=== PATIENT | male | born 1945 | race American Indian/Alaskan Native ===

== ENCOUNTER 2021-11-02 16:55 | Observation (INO) | payer MEDICARE ==
[2021-11-02 20:33] LABS: Alanine Aminotransferase 27 units/L (7-56); Albumin 4.4 g/dL (3.9-5); BUN/Creatinine Ratio 7; Blood Urea Nitrogen 10 mg/dL (9-20); Calcium 9.9 mg/dL (8.4-10.2); Hemolysis Index 10
--- NOTE | 2021-11-02 20:36 | XRay Report ---
XR chest 1V ap INDICATION / CLINICAL INFORMATION: Syncope COMPARISON: None available. FINDINGS: SUPPORT DEVICES: None. HEART / MEDIASTINUM: Median sternotomy for CABG. No significant abnormality. LUNGS / PLEURA: Lungs are clear. Costophrenic sulci are sharp. No pneumothorax. ADDITIONAL FINDINGS: No significant additional findings. IMPRESSION: 1. No acute findings. Signer Name: Mo Martin MD Signed: 11/02/2021 8:31 PM Workstation Name: [id number]
--- NOTE | 2021-11-02 20:42 | Cat Scan Report ---
CT head/brain wo con INDICATION / CLINICAL INFORMATION: 76 years Male; Syncope. TECHNIQUE: Routine CT head without contrast. All CT scans at this location are performed using CT dos e reduction for ALARA by means of automated exposure control. COMPARISON: None. FINDINGS: BRAIN / INTRACRANIAL CONTENTS: Small lacunar infarct is seen along the anterior limb of the internal capsule on the [id number] without diffusion imaging by MRI. Small lacunar infarcts seen in the head of the caudate on the left, as well. Otherwise, no acute hemorrhage, mass effect, midline shift, hydrocephalus, or acute, large territori al infarct. Ifcx-xa-[id number], diffuse cerebral and cerebellar atrophy. There are msip-rk-[id number] areas of decreased attenuation in the white matter of the cerebral hemisph eres. These are nonspecific findings and may be related to microangiopathy (hypertension, diabetes, a therosclerosis), given the patient's age. It might be difficult to evaluate for small areas of ischem ia without diffusion imaging by MRI. CRANIOCERVICAL JUNCTION: No significant abnormality. ORBITS: No significant abnormality of visualized orbits. SINUSES / MASTOIDS: Mild mucosal thickening in the ethmoids. ADDITIONAL FINDINGS: Atherosclerotic disease is seen in the anterior and posterior circulation. IMPRESSION: 1. No focal mass, hemorrhage, hydrocephalus, or acute, large territorial infarct. Follow-up with diff usion imaging by MRI, as clinically warranted. Signer Name: Flash Nesbitt MD, III Signed: 11/02/2021 8:38 PM Workstation Name: [facility]
[2021-11-02 20:44] LABS: Basophils % (Auto) 0.4 % (0.0-1.8); Eosinophils # (Auto) 0.2 K/mm3 (0.0-0.4); Eosinophils % (Auto) 2.2 % (0.0-4.3); Hematocrit 44.1 % (35.5-45.6); Hemoglobin 14.4 gm/dl (11.8-15.2); Lymphocytes # (Auto) 1.7 K/mm3 (1.2-5.4); Lymphocytes % (Auto) 23.3 % (13.4-35.0); Mean Corpuscular HGB Conc 33 % (32-34); Mean Corpuscular Volume 89 fl (84-94); Monocytes # (Auto) 0.4 K/mm3 (0.0-0.8); Monocytes % (Auto) 5.9 % (0.0-7.3); Platelet Count 226 K/mm3 (140-440); Red Blood Count 4.93 M/mm3 (3.65-5.03); Red Cell Distribution Width 14.1 % (13.2-15.2)
[2021-11-02 20:54] LABS: INR 1.05 (0.87-1.13)
[2021-11-02] MEDS ORDERED: ASPIRIN 81 MG TAB CHEW PO ONE (21:51)
--- NOTE | 2021-11-02 21:51 | Emergency Department Report ---
ED General Adult HPI - General Chief complaint: Syncope Stated complaint: SYNCOPE Time Seen by Provider: 11/02/21 19:32 Source: patient, EMS Mode of arrival: Stretcher Limitations: No Limitations - History of Present Illness Initial comments: Patient presents to the emergency department via EMS for syncopal episode while at his primary care physician's office. Per EMS the patient was seen in his physician when a witnessed syncopal episode occurred. The patient loss of bladder during the episode. The patient's physician denies any seizure-like act ivity. The patient has no history of seizures. Patient denies chest pain prior to or after the syncopal episode. He denies shortness of breath or abdominal pain. -: Sudden Severity scale (0 -10): 0 Consistency: now resolved Improves with: none Worsens with: none Associated Symptoms: denies other symptoms Treatments Prior to Arrival: none - Related Data Allergies Allergy/AdvReac Type Severity Reaction Status Date / Time No Known Allergies Allergy Verified 11/02/21 16:58 ED Review of Systems ROS: Stated complaint: SYNCOPE Other details as noted in HPI Comment: All other systems reviewed and negative Constitutional: denies: chills, fever Eyes: denies: eye pain, eye discharge, vision change ENT: denies: ear pain, throat pain Respiratory: denies: cough, shortness of breath, wheezing Cardiovascular: denies: chest pain, palpitations Endocrine: no symptoms reported Gastrointestinal: denies: abdominal pain, nausea, diarrhea Genitourinary: denies: urgency, dysuria Musculoskeletal: denies: back pain, joint swelling, arthralgia Skin: denies: rash, lesions Neurological: denies: headache, weakness, paresthesias Psychiatric: denies: anxiety, depression Hematological/Lymphatic: denies: easy bleeding, easy bruising ED Physical Exam - General Limitations: No Limitations General appearance: alert, in no apparent distress - Head Head exam: Present: atraumatic, normocephalic - Eye Eye exam: Present: normal appearance, PERRL, EOMI - ENT ENT exam: Present: mucous membranes moist - Neck Neck exam: Present: normal inspection - Respiratory Respiratory exam: Present: normal lung sounds bilaterally. Absent: respiratory distress - Cardiovascular Cardiovascular Exam: Present: regular rate, normal rhythm. Absent: systolic murmur, diastolic murmur, rubs, gallop - GI/Abdominal GI/Abdominal exam: Present: soft, normal bowel sounds. Absent: distended, tenderness - Rectal Rectal exam: Present: deferred - Extremities Exam Extremities exam: Present: normal inspection - Back Exam Back exam: Present: normal inspection - Neurological Exam Neurological exam: Present: alert, oriented X3, CN II-XII intact. Absent: motor sensory deficit - Psychiatric Psychiatric exam: Present: normal affect, normal mood - Skin Skin exam: Present: warm, dry, intact, normal color. Absent: rash ED Course Vital Signs 11/02/21 11/02/21 11/02/21 16:56 19:25 19:30 Pulse Rate 74 Respiratory Rate Blood Pressure Blood Pressure 116/74 [Left] O2 Sat by Pulse 97 87 100 Oximetry 11/02/21 11/02/21 11/02/21 19:31 19:45 20:01 Pulse Rate 66 71 Respiratory 16 19 Rate Blood Pressure 135/66 135/66 119/66 Blood Pressure [Left] O2 Sat by Pulse 98 100 98 Oximetry 11/02/21 11/02/21 11/02/21 20:16 20:31 20:45 Pulse Rate 76 76 73 Respiratory 19 18 17 Rate Blood Pressure 119/66 Blood Pressure [Left] O2 Sat by Pulse 99 98 98 Oximetry 11/02/21 11/02/21 21:01 21:15 Pulse Rate 68 74 Respiratory 18 16 Rate Blood Pressure 119/66 119/66 Blood Pressure [Left] O2 Sat by Pulse 98 98 Oximetry ED Medical Decision Making - Lab Data Result diagrams: 11/02/21 19:49 11/02/21 19:49 Lab Results 11/02/21 11/02/21 11/02/21 Range/Units 19:29 19:49 19:49 WBC 7.1 (4.5-11.0) K/mm3 RBC 4.93 (3.65-5.03) M/mm3 Hgb 14.4 (11.8-15.2) gm/dl Hct 44.1 (35.5-45.6) % MCV 89 (84-94) fl MCH 29 (28-32) pg MCHC 33 (32-34) % RDW 14.1 (13.2-15.2) % Plt Count 226 (140-440) K/mm3 Lymph % (Auto) 23.3 (13.4-35.0) % [place] % (Auto) 5.9 (0.0-7.3) % Eos % (Auto) 2.2 (0.0-4.3) % Baso % (Auto) 0.4 (0.0-1.8) % Lymph # (Auto) 1.7 (1.2-5.4) K/mm3 [place] # (Auto) 0.4 (0.0-0.8) K/mm3 Eos # (Auto) 0.2 (0.0-0.4) K/mm3 Baso # (Auto) 0.0 (0.0-0.1) K/mm3 Seg Neutrophils % 68.2 (40.0-70.0) % Seg Neutrophils # 4.9 (1.8-7.7) K/mm3 PT 14.9 (12.2-14.9) Sec. INR 1.05 (0.87-1.13) D-Dimer 152.47 (0-234) ng/mlDDU Sodium (137-145) mmol/L Potassium (3.6-5.0) mmol/L Chloride (98-107) mmol/L Carbon Dioxide (22-30) mmol/L Anion Gap mmol/L BUN (9-20) mg/dL Creatinine (0.8-1.3) mg/dL Estimated GFR ml/min BUN/Creatinine Ratio % Glucose (75-100) mg/dL POC Glucose 108 H (70-105) mg/dL Calcium (8.4-10.2) mg/dL Magnesium (1.7-2.3) mg/dL Total Bilirubin (0.1-1.2) mg/dL AST (5-40) units/L ALT (7-56) units/L Alkaline Phosphatase (35-129) units/L Troponin T (0.00-0.029) ng/mL Total Protein (6.3-8.2) g/dL Albumin (3.9-5) g/dL Albumin/Globulin Ratio % 11/02/21 Range/Units 19:49 WBC (4.5-11.0) K/mm3 RBC (3.65-5.03) M/mm3 Hgb (11.8-15.2) gm/dl Hct (35.5-45.6) % MCV (84-94) fl MCH (28-32) pg MCHC (32-34) % RDW (13.2-15.2) % Plt Count (140-440) K/mm3 Lymph % (Auto) (13.4-35.0) % [place] % (Auto) (0.0-7.3) % Eos % (Auto) (0.0-4.3) % Baso % (Auto) (0.0-1.8) % Lymph # (Auto) (1.2-5.4) K/mm3 [place] # (Auto) (0.0-0.8) K/mm3 Eos # (Auto) (0.0-0.4) K/mm3 Baso # (Auto) (0.0-0.1) K/mm3 Seg Neutrophils % (40.0-70.0) % Seg Neutrophils # (1.8-7.7) K/mm3 PT (12.2-14.9) Sec. INR (0.87-1.13) D-Dimer (0-234) ng/mlDDU Sodium 142 (137-145) mmol/L Potassium 4.2 (3.6-5.0) mmol/L Chloride 103.8 (98-107) mmol/L Carbon Dioxide 25 (22-30) mmol/L Anion Gap 17 mmol/L BUN 10 (9-20) mg/dL Creatinine 1.4 H (0.8-1.3) mg/dL Estimated GFR 50 ml/min BUN/Creatinine Ratio 7 % Glucose 104 H (75-100) mg/dL POC Glucose (70-105) mg/dL Calcium 9.9 (8.4-10.2) mg/dL Magnesium 2.20 (1.7-2.3) mg/dL Total Bilirubin 0.40 (0.1-1.2) mg/dL AST 28 (5-40) units/L ALT 27 (7-56) units/L Alkaline Phosphatase 84 (35-129) units/L Troponin T < 0.010 (0.00-0.029) ng/mL Total Protein 7.4 (6.3-8.2) g/dL Albumin 4.4 (3.9-5) g/dL Albumin/Globulin Ratio 1.5 % - EKG Data -: EKG Interpreted by Md EKG shows normal: sinus rhythm Rate: normal - Radiology Data Radiology results: report reviewed - Medical Decision Making Discussed plan of care with patient Critical care attestation.: If time is entered above; I have spent that time in minutes in the direct care of this critically ill patient, excluding procedure time. ED Disposition Clinical Impression: Syncope Disposition: 01 HOME / SELF CARE / HOMELESS Is pt being admited?: No Does the pt Need Aspirin: Yes Condition: Fair Instructions: Syncope (ED)
[2021-11-02] MEDS ORDERED: traMADol 50 MG TAB PO PRN (22:02)
[2021-11-02] MEDS ORDERED: NITROGLYCERIN 0.4 MG TAB SUBL SL PRN (22:02)
[2021-11-02] MEDS ORDERED: MORPHINE 2 MG/1 ML INJ IV PRN (22:02)
[2021-11-02] MEDS ORDERED: ACETAMINOPHEN 325 MG TAB PO PRN (22:02)
--- NOTE | 2021-11-02 22:10 | History and Physical Report ---
History of Present Illness Date of examination: 11/02/21 Date of admission: 11/02/21 Chief complaint: Syncope History of present illness: 76 years old male with history of hypertension was brought to the hospital because of syncopal episode while at his primary care physician's office. Per EMS the patient was seen in his physician when a witnessed syncopal episode occurred. The patient loss of bladder during the episode. The patient's physician denies any seizure-like activity. The patient has no history of seizures. Patient denies chest pain prior to or after the syncopal episode. He denies shortness of breath or abdominal pain. In the emergency room initial cardiac enzyme is negative troponin is 0.010. CT scan of the head shows no acute intracranial abnormality. Chest x-ray shows no acute finding Past History Past Medical History: hypertension Past Surgical History: No surgical history Social history: no significant social history Family history: no significant family history Medications and Allergies Allergies Allergy/AdvReac Type Severity Reaction Status Date / Time No Known Allergies Allergy Verified 11/02/21 16:58 Review of Systems All systems: negative Cardiovascular: syncope Exam - Constitutional Vitals: Temp Pulse Resp BP Pulse Ox 74 16 119/66 98 11/02/21 21:15 11/02/21 21:15 11/02/21 21:15 11/02/21 21:15 General appearance: Present: no acute distress, well-nourished - EENT Eyes: Present: PERRL ENT: hearing intact, clear oral mucosa - Neck Neck: Present: supple, normal ROM - Respiratory Respiratory effort: normal Respiratory: bilateral: CTA - Cardiovascular Heart Sounds: Present: S1 & S2. Absent: rub, click - Extremities Extremities: pulses symmetrical, No edema Peripheral Pulses: within normal limits - Abdominal General gastrointestinal: Present: soft, non-tender, non-distended, normal bowel sounds Male genitourinary: Present: normal - Integumentary Integumentary: Present: clear, warm, dry - Musculoskeletal Musculoskeletal: gait normal, strength equal bilaterally - Psychiatric Psychiatric: appropriate mood/affect, intact judgment & insight - Neurologic Neurologic: CNII-XII intact, moves all extremities HEART Score - HEART Score Troponin: Troponin T < 0.010 ng/mL (0.00-0.029) 11/02/21 19:49 Results - Labs CBC & Chem 7: 11/02/21 19:49 11/02/21 19:49 Labs: Laboratory Last Values WBC 7.1 K/mm3 (4.5-11.0) 11/02/21 19:49 RBC 4.93 M/mm3 (3.65-5.03) 11/02/21 19:49 Hgb 14.4 gm/dl (11.8-15.2) 11/02/21 19:49 Hct 44.1 % (35.5-45.6) 11/02/21 19:49 MCV 89 fl (84-94) 11/02/21 19:49 MCH 29 pg (28-32) 11/02/21 19:49 MCHC 33 % (32-34) 11/02/21 19:49 RDW 14.1 % (13.2-15.2) 11/02/21 19:49 Plt Count 226 K/mm3 (140-440) 11/02/21 19:49 Lymph % (Auto) 23.3 % (13.4-35.0) 11/02/21 19:49 [place] % (Auto) 5.9 % (0.0-7.3) 11/02/21 19:49 Eos % (Auto) 2.2 % (0.0-4.3) 11/02/21 19:49 Baso % (Auto) 0.4 % (0.0-1.8) 11/02/21 19:49 Lymph # (Auto) 1.7 K/mm3 (1.2-5.4) 11/02/21 19:49 [place] # (Auto) 0.4 K/mm3 (0.0-0.8) 11/02/21 19:49 Eos # (Auto) 0.2 K/mm3 (0.0-0.4) 11/02/21 19:49 Baso # (Auto) 0.0 K/mm3 (0.0-0.1) 11/02/21 19:49 Seg Neutrophils % 68.2 % (40.0-70.0) 11/02/21 19:49 Seg Neutrophils # 4.9 K/mm3 (1.8-7.7) 11/02/21 19:49 PT 14.9 Sec. (12.2-14.9) 11/02/21 19:49 INR 1.05 (0.87-1.13) 11/02/21 19:49 D-Dimer 152.47 ng/mlDDU (0-234) 11/02/21 19:49 Sodium 142 mmol/L (137-145) 11/02/21 19:49 Potassium 4.2 mmol/L (3.6-5.0) 11/02/21 19:49 Chloride 103.8 mmol/L (98-107) 11/02/21 19:49 Carbon Dioxide 25 mmol/L (22-30) 11/02/21 19:49 Anion Gap 17 mmol/L 11/02/21 19:49 BUN 10 mg/dL (9-20) 11/02/21 19:49 Creatinine 1.4 mg/dL (0.8-1.3) H 11/02/21 19:49 Estimated GFR 50 ml/min 11/02/21 19:49 BUN/Creatinine Ratio 7 % 11/02/21 19:49 Glucose 104 mg/dL (75-100) H 11/02/21 19:49 POC Glucose 108 mg/dL (70-105) H 11/02/21 19:29 Calcium 9.9 mg/dL (8.4-10.2) 11/02/21 19:49 Magnesium 2.20 mg/dL (1.7-2.3) 11/02/21 19:49 Total Bilirubin 0.40 mg/dL (0.1-1.2) 11/02/21 19:49 AST 28 units/L (5-40) 11/02/21 19:49 ALT 27 units/L (7-56) 11/02/21 19:49 Alkaline Phosphatase 84 units/L (35-129) 11/02/21 19:49 Troponin T < 0.010 ng/mL (0.00-0.029) 11/02/21 19:49 Total Protein 7.4 g/dL (6.3-8.2) 11/02/21 19:49 Albumin 4.4 g/dL (3.9-5) 11/02/21 19:49 Albumin/Globulin Ratio 1.5 % 11/02/21 19:49 - Imaging and Cardiology Chest x-ray: report reviewed CT Scan - head: report reviewed Assessment and Plan VTE prophylaxis?: Chemical Plan of care discussed with patient/family: Yes - Patient Problems (1) Syncope Status: Acute Plan to address problem: Admit the patient to the medical telemetry. Cardiac diet. Aspirin 325 mg p.o. daily. Lipitor 40 mg p.o. daily. Nitroglycerin as needed. Normal saline at the rate of 100 cc/h. We will do the serial cardiac enzymes. We also do a echocardiogram. Consult cardiology if needed (2) Hypertension Status: Acute Plan to address problem: Hydralazine 10 mg IV every 6 hours as needed. We continue the home medication. We will monitor the blood pressure closely (3) DVT prophylaxis Status: Acute Plan to address problem: Heparin 5000 units subcu every 12 hours for DVT prophylaxis. Protonix 40 mg p.o. daily for GI prophylaxis. Patient is a full code
[2021-11-02] MEDS ORDERED: SODIUM CHLORIDE 0.9% 1000 ML 1,000 ML IV SCH (22:15)
[2021-11-03 06:24] LABS: Basophils % (Auto) 0.4 % (0.0-1.8); Eosinophils # (Auto) 0.3 K/mm3 (0.0-0.4); Eosinophils % (Auto) 4.3 % (0.0-4.3); Hematocrit 41.8 % (35.5-45.6); Hemoglobin 13.7 gm/dl (11.8-15.2); Lymphocytes # (Auto) 2.1 K/mm3 (1.2-5.4); Mean Corpuscular HGB Conc 33 % (32-34); Mean Corpuscular Volume 89 fl (84-94); Monocytes # (Auto) 0.5 K/mm3 (0.0-0.8); Monocytes % (Auto) 8.9 % (0.0-7.3); Platelet Count 206 K/mm3 (140-440); Red Blood Count 4.71 M/mm3 (3.65-5.03)
[2021-11-03 06:26] LABS: BUN/Creatinine Ratio 8; Blood Urea Nitrogen 9 mg/dL (9-20); Calcium 9.1 mg/dL (8.4-10.2); Hemolysis Index 7
--- NOTE | 2021-11-03 09:07 | Electrocardiograph Report ---
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
--- NOTE | 2021-11-03 09:08 | Electrocardiograph Report ---
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
[2021-11-03] MEDS ORDERED: HEPARIN 5,000 UNIT/1 ML VIAL SUB-Q SCH (10:00)
[2021-11-03] MEDS ORDERED: PANTOPRAZOLE 40 MG TAB PO SCH (10:00)
[2021-11-03] MEDS ORDERED: ASPIRIN EC 325 MG TAB PO SCH (10:00)
[2021-11-03 10:36] VITALS: BP 121/65
[2021-11-03 12:14] LABS: Bilirubin,Urine NEG (Negative); Blood,Urine NEG (Negative); Color,Urine Yellow (Yellow); Protein,Urine <15 mg/dL mg/dL (Negative); Urobilinogen,Urine < 2.0 mg/dL (<2.0)
[2021-11-03 12:15] LABS: Mucus,Urine FEW /HPF
--- NOTE | 2021-11-03 15:11 | Discharge Summary ---
Providers - Providers Date of Admission: 11/02/21 22:02 Date of discharge: 11/03/21 Attending physician: LIDIA YANCEY MD Primary care physician: NBA RENDON Hospitalization Reason for admission: Syncope Condition: Fair Pertinent studies: Reviewed. Procedures: None. Hospital course: Patient is a 76-year-old male past medical history of hypertension who presented to the ED after syncopal episode at his primary care physician's office. The syncopal episode was witnessed and associated with loss of bladder control. There was no report of seizure-like activity; the patient has no seizure history. In the emergency department, the patient was found to be hemodynamical ly stable with negative troponins x2. Patient underwent CT head noncontrast that was found to be unremarkable. Chest x-ray was also unremarkable. Patient syncope is likely secondary to vasovagal phenomenon. Patient is medically clear for discharge. Disposition: 01 HOME / SELF CARE / HOMELESS Final Discharge Diagnosis (Prints w/discharge instructions): Syncope, hypertension. Time spent for discharge: 45 min Core Measure Documentation - Palliative Care Palliative Care/ Comfort Measures: Not Applicable - Core Measures Any of the following diagnoses?: none Exam - Constitutional Vitals: Temp Pulse Resp BP Pulse Ox 98.0 F 71 18 121/65 99 11/03/21 10:25 11/03/21 11:00 11/03/21 12:56 11/03/21 10:25 11/03/21 12:56 General appearance: Present: no acute distress, well-nourished - EENT Eyes: Present: PERRL, EOM intact ENT: hearing intact - Neck Neck: Present: supple, normal ROM - Respiratory Respiratory effort: normal Respiratory: bilateral: CTA - Cardiovascular Rhythm: regular Heart Sounds: Present: S1 & S2 - Extremities Extremities: no ischemia, pulses intact, pulses symmetrical, No edema, normal temperature, normal color Peripheral Pulses: within normal limits - Abdominal General gastrointestinal: Present: soft, non-tender, non-distended, normal bowel sounds Male genitourinary: Present: deferred - Rectal Rectal Exam: deferred - Integumentary Integumentary: Present: clear, warm, dry - Musculoskeletal Musculoskeletal: strength equal bilaterally - Psychiatric Psychiatric: appropriate mood/affect, cooperative - Neurologic Neurologic: CNII-XII intact, moves all extremities - Allied Health Allied health notes reviewed: nursing Plan Activity: advance as tolerated Diet: low salt Additional Instructions: Patient is a 76-year-old male past medical history of hypertension who presented to the ED after syncopal episode at his primary care physician's office. The syncopal episode was witnessed and associated with loss of bladder control. There was no report of seizure-like activity; the patient has no seizure history. In the emergency department, the patient was found to be hemodynamically stable with negative troponins x2. Patient underwent CT head noncontrast that was found to be unremarkable. Chest x-ray was also unremarkable. Patient syncope is likely secondary to vasovagal phenomenon. Patient is medically clear for discharge. Care Plan Goals: Patient is medically cleared for discharge. Assessment: Patient is a 76-year-old male past medical history of hypertension who presented to the ED after syncopal episode at his primary care physician's office. The syncopal episode was witnessed and associated with loss of bladder control. There was no report of seizure-like activity; the patient has no seizure history. In the emergency department, the patient was found to be hemodynamically stable with negative troponins x2. Patient underwent CT head noncontrast that was found to be unremarkable. Chest x-ray was also unremarka ble. Patient syncope is likely secondary to vasovagal phenomenon. Patient is medically clear for discharge. Follow up with: NBA RENDON MD [Primary Care Provider] - 7 Days
--- NOTE | 2021-11-04 10:20 | Electrocardiograph Report ---
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
== END 2021-11-03 19:45 | disposition home or self-care (01) ==
LOC: ED 16:55 → INTOOBSV 22:02 → 4A 22:02
PROVIDERS: ADMIT Hospitalist; ATTEND Student in an Organized Health Care Education/Training Program
DX: R55 Syncope and collapse (principal); I10 Essential (primary) hypertension
CPT/HCPCS: 36415; 70450; 71045; 80048; 80053; 81001; 82962; 83735; 84484; 85025; 85379; 85610; 93005; 96360; 96372; 99285; C8929; G0378; J1644; J7030; 93306